=== PATIENT | male | born 1990 ===

== ENCOUNTER 2022-03-14 20:00 | Outpatient (CLI) | payer BC, SELFPAY | END 2022-03-14 20:01 | disposition home or self-care (01) | LOC: SLEEP 03-15 06:38 | PROVIDERS: PCP Registered Nurse; Visit Provider Registered Nurse | DX: G47.33 Obstructive sleep apnea (adult) (pediatric) (principal) | CPT/HCPCS: 95810 ==

== ENCOUNTER 2022-05-02 20:00 | Outpatient (CLI) | payer BC, SELFPAY | END 2022-05-02 20:01 | disposition home or self-care (01) | LOC: SLEEP 05-03 06:27 | PROVIDERS: PCP Registered Nurse; Visit Provider Internal Medicine Pulmonary Disease | DX: G47.33 Obstructive sleep apnea (adult) (pediatric) (principal) | CPT/HCPCS: 95811 ==

== ENCOUNTER → 2022-05-21 14:46 | Outpatient (BNVA) | payer BC, SELFPAY | PROVIDERS: PCP Registered Nurse; Visit Provider Urology | DX: R79.89 Other specified abnormal findings of blood chemistry (principal); E11.9 Type 2 diabetes mellitus without complications | CPT/HCPCS: 81003; 99203 ==